=== PATIENT | female | born 1950 | race African-American/Black ===

== ENCOUNTER 2018-06-12 10:46 | Emergency (ER) | payer MEDICARE, OTHER ==
[~2018-06-12] VITALS: Ht 165.1 cm; Wt 67.0 kg
[~2018-06-12 10:46] MED LIST: ASPI-785; LISI-186; METF-414
[2018-06-12] MEDS ORDERED: MORPHINE SULFATE 4 MG/ML CPJ (NOT FOR IM USE) IV STA (11:08)
[2018-06-12] MEDS ORDERED: ONDANSETRON HCL 4MG/2ML INJ IV STA (11:08)
[2018-06-12] MEDS ORDERED: HYDROCODONE/ACETAMINOPHEN 10/325MG TABLET PO ONE (13:30)
[2018-06-12] MEDS ORDERED: MORPHINE SULFATE 10 MG/ML CPJ IM ONE (13:45)
[2018-06-12 14:01] VITALS: BP 199/99
== END 2018-06-12 14:00 | disposition home or self-care (01) ==
LOC: ER 10:57
DX: S42.251A Displaced fracture of greater tuberosity of right humerus, initial encounter for closed fracture (principal); I10 Essential (primary) hypertension; Z93.3 Colostomy status; Z79.899 Other long term (current) drug therapy; W01.0XXA Fall on same level from slipping, tripping and stumbling without subsequent striking against object, initial encounter; Y93.89 Activity, other specified; Y92.89 Other specified places as the place of occurrence of the external cause; Y99.8 Other external cause status
CPT/HCPCS: 73030; 96372; 96374; 96375; 99283; J2270; J2405; A4565

== ENCOUNTER 2018-06-24 16:50 | Emergency (ER) | payer MEDICARE, OTHER ==
[~2018-06-24] VITALS: Ht 162.6 cm; Wt 75.0 kg
[2018-06-24] MEDS ORDERED: HYDROCODONE/ACETAMINOPHEN 5/325MG TABLET PO ONE (18:45)
[2018-06-24 19:04] VITALS: BP 119/83
== END 2018-06-24 19:40 | disposition home or self-care (01) ==
LOC: ER 17:15
DX: G89.29 Other chronic pain (principal); M25.511 Pain in right shoulder; Z85.9 Personal history of malignant neoplasm, unspecified; Z90.49 Acquired absence of other specified parts of digestive tract; Z79.82 Long term (current) use of aspirin
CPT/HCPCS: 99283

== ENCOUNTER 2018-07-11 04:36 | Inpatient (IN) | payer MEDICARE, OTHER ==
[~2018-07-11] VITALS: Ht 162.6 cm; Wt 63.0 kg
[2018-07-11] MEDS ORDERED: FENTANYL CITRATE/PF 50MCG/ML 2ML VIAL IV ONE (06:45)
[2018-07-11 07:23] LABS: HEMATOCRIT. 27.3 % (36.0-48.0); MEAN CORPUSCULAR HEMOGLOBIN 31.5 pg (28.0-32.0); MEAN CORPUSCULAR VOLUME 95.9 fL (81.0-99.0); MEAN PLATELET VOLUME 10.5 fl (7.4-10.4); PLATELET 90 x1000/uL (130-400); RED BLOOD CELL COUNT 2.85 mill/uL (4.2-5.4); RED CELL DISTRIBUTION WIDTH 14.9 % (11.6-14.6)
[2018-07-11 07:28] LABS: CHLORIDE 113 mEq/L (98-107); INR 1.1; PROTHROMBIN TIME 10.8 sec (9.1-11.1)
[2018-07-11 08:04] LABS: PLATELET ESTIMATE SLIGHTLY DECREASED
[2018-07-11] MEDS ORDERED: FENTANYL CITRATE/PF 50MCG/ML 2ML VIAL IM ONE (08:45)
[2018-07-11] MEDS ORDERED: LEVOFLOXACIN 750MG PREMIX 150 ML IV NR (10:15)
[2018-07-11 10:46] LABS: CLARITY URINE CLEAR (CLEAR); COLOR URINE YELLOW (YELLOW); KETONES URINE NEGATIVE (NEGATIVE); LEUKOCYTE ESTERASE URINE NEGATIVE (NEGATIVE); NITRITE URINE NEGATIVE (NEGATIVE); OCCULT BLOOD URINE NEGATIVE (NEGATIVE); PROTEIN URINE NEGATIVE (NEGATIVE); SPECIFIC GRAVITY URINE 1.016 (1.005-1.030); UROBILINOGEN URINE 0.2 E.U./dL (0.2-1.0)
[2018-07-11] MEDS ORDERED: SODIUM BICARBONATE 4% (2.4MEQ) 5ML VIAL IV ONE (10:52)
[2018-07-11] MEDS ORDERED: LIDOCAINE HCL 1% 20ML VIAL (Pyxis) INJ ONE (10:52)
[2018-07-11] MEDS ORDERED: LEVOFLOXACIN 250MG TABLET PO ONE (11:15)
[2018-07-11] MEDS ORDERED: HYDRALAZINE 20MG/ML VIAL IV ONE (13:15)
[2018-07-11 14:47] VITALS: BP 177/87
[2018-07-11 14:57] VITALS: BP 177/98
[2018-07-11] MEDS ORDERED: ACETAMINOPHEN 325MG TABLET PO PRN (15:00)
[2018-07-11] MEDS ORDERED: CLONIDINE 0.1MG TABLET PO PRN (15:00)
[2018-07-11] MEDS ORDERED: DOCUSATE SODIUM 100MG CAPSULE PO PRN (15:00)
[2018-07-11] MEDS ORDERED: ONDANSETRON HCL 4MG/2ML INJ IV PRN (15:00)
[2018-07-11] MEDS ORDERED: ENOXAPARIN 40MG/0.4ML SYR SUBCUT SCH (15:00)
[2018-07-11] MEDS ORDERED: METOPROLOL TARTRATE 5MG/5ML VIAL IV NR (15:15)
[2018-07-11 16:00] VITALS: BP 179/85
[2018-07-11 17:10] LABS: TOTAL IRON BINDING CAPACITY 223 ug/dL (250-450)
[2018-07-11 18:00] VITALS: BP 145/89
[2018-07-11] MEDS: AMLODIPINE 5MG TABLET PO SCH ×2 (18:53→21:55)
[2018-07-11 19:49] VITALS: BP 147/75
[2018-07-11] MEDS: HYDROCODONE/ACETAMINOPHEN 5/325MG TABLET PO PRN ×2 (19:50→23:51)
[2018-07-11] MEDS ORDERED: DEXTROSE 50% WATER 50ML SYRINGE IV PRN ×2 (21:15)
[2018-07-11] MEDS: LISINOPRIL 10MG TABLET PO SCH (21:55)
[2018-07-11 23:47] VITALS: BP 158/80
[2018-07-12 04:00] VITALS: BP 131/69
[2018-07-12] MEDS: HYDROCODONE/ACETAMINOPHEN 5/325MG TABLET PO PRN ×4 (04:11→19:57)
[2018-07-12 06:56] LABS: BASOPHILS % 0.3 % (0.0-2.0); EOSINOPHILS % 0.3 % (0.0-5.0); HEMATOCRIT. 24.2 % (36.0-48.0); LYMPHOCYTES % 13.1 % (20.0-50.0); MEAN CORPUSCULAR VOLUME 93.2 fL (81.0-99.0); MEAN PLATELET VOLUME 10.5 fl (7.4-10.4); MONOCYTES % 12.2 % (2.0-8.0); NEUTROPHILS % 74.1 % (40.0-76.0); PLATELET 83 x1000/uL (130-400); RED BLOOD CELL COUNT 2.59 mill/uL (4.2-5.4); RED CELL DISTRIBUTION WIDTH 14.6 % (11.6-14.6)
[2018-07-12] MEDS ORDERED: BLOOD SUGAR DIAGNOSTIC STRIP TEST SCH (07:40)
[2018-07-12 07:52] LABS: CHLORIDE 116 mEq/L (98-107)
[2018-07-12 07:58] LABS: PHOSPHORUS 2.5 mg/dL (2.5-4.9)
[2018-07-12 07:59] LABS: LDL CHOLESTEROL 25 mg/dL (5-100)
[2018-07-12 08:00] LABS: HDL CHOLESTEROL 72 mg/dL (40-59)
[2018-07-12 08:03] VITALS: BP 117/73
[2018-07-12] MEDS ORDERED: INSULIN LISPRO 100 UNITS/ML SUBCUT SCH (08:10)
[2018-07-12] MEDS: AMLODIPINE 5MG TABLET PO SCH ×2 (08:27→20:40)
[2018-07-12] MEDS: LISINOPRIL 10MG TABLET PO SCH ×2 (08:27→20:40)
[2018-07-12] MEDS: LEVOFLOXACIN 500MG PREMIX 100 ML IV SCH (10:02)
[2018-07-12 12:00] VITALS: BP 140/66
[2018-07-12] MEDS ORDERED: POTASSIUM CHLORIDE 20MEQ TABLET SR PO SCH (12:00)
[2018-07-12 16:00] VITALS: BP 133/74
[2018-07-12 19:53] VITALS: BP 109/69
[2018-07-13 00:02] VITALS: BP 156/69
[2018-07-13] MEDS: HYDROCODONE/ACETAMINOPHEN 5/325MG TABLET PO PRN ×3 (01:06→11:55)
[2018-07-13 04:00] VITALS: BP 138/71
[2018-07-13 08:00] VITALS: BP 132/78
[2018-07-13] MEDS: LEVOFLOXACIN 500MG PREMIX 100 ML IV SCH (09:26)
[2018-07-13] MEDS: LISINOPRIL 10MG TABLET PO SCH (09:27)
[2018-07-13] MEDS: AMLODIPINE 5MG TABLET PO SCH (09:32)
[2018-07-13] MEDS ORDERED: POTASSIUM CHLORIDE 20MEQ TABLET SR PO NR ×2 (10:30→12:00)
[2018-07-13 11:24] LABS: BASOPHILS % 0.4 % (0.0-2.0); EOSINOPHILS % 1.5 % (0.0-5.0); HEMATOCRIT. 25.7 % (36.0-48.0); HEMOGLOBIN. 8.4 g/dL (12.0-16.0); LYMPHOCYTES % 15.2 % (20.0-50.0); MEAN CORPUSCULAR HEMOGLOBIN 30.8 pg (28.0-32.0); MEAN CORPUSCULAR VOLUME 94.2 fL (81.0-99.0); MEAN PLATELET VOLUME 9.8 fl (7.4-10.4); MONOCYTES % 9.1 % (2.0-8.0); NEUTROPHILS % 73.8 % (40.0-76.0); PLATELET 102 x1000/uL (130-400); RED BLOOD CELL COUNT 2.73 mill/uL (4.2-5.4); RED CELL DISTRIBUTION WIDTH 14.5 % (11.6-14.6)
[2018-07-13 11:50] LABS: CHLORIDE 112 mEq/L (98-107)
[2018-07-13 12:00] VITALS: BP 149/78
[2018-07-13 15:12] VITALS: BP 149/78
== END 2018-07-13 16:10 | disposition home or self-care (01) | DRG 392 ==
LOC: ER 04:36 → ENRESERV 11:47 → 7WST 12:16 → EDBEDREQ 12:20 → EDBEDREQTM 12:21
PROVIDERS: ADMIT Family Medicine Adult Medicine; ATTEND Family Medicine Adult Medicine
PROC: 05H533Z Insertion of Infusion Device into Right Subclavian Vein, Percutaneous Approach (ICD-10-PCS; principal; 2018-07-11)
PROC: B546ZZA Ultrasonography of Right Subclavian Vein, Guidance (ICD-10-PCS; 2018-07-11)
DX: R10.9 Unspecified abdominal pain (principal); R91.8 Other nonspecific abnormal finding of lung field; R07.89 Other chest pain; G30.9 Alzheimer's disease, unspecified; F02.80 Dementia in other diseases classified elsewhere, unspecified severity, without behavioral disturbance, psychotic disturbance, mood disturbance, and anxiety; D50.9 Iron deficiency anemia, unspecified; M25.511 Pain in right shoulder; D69.6 Thrombocytopenia, unspecified; E87.6 Hypokalemia; E11.9 Type 2 diabetes mellitus without complications; G20 Parkinson's disease; I10 Essential (primary) hypertension; Z82.49 Family history of ischemic heart disease and other diseases of the circulatory system; Z93.3 Colostomy status; Z79.82 Long term (current) use of aspirin; Z85.038 Personal history of other malignant neoplasm of large intestine; Z85.07 Personal history of malignant neoplasm of pancreas; Z79.84 Long term (current) use of oral hypoglycemic drugs; Z85.05 Personal history of malignant neoplasm of liver
CPT/HCPCS: 36415; 36569; 71045; 74176; 76937; 80048; 80061; 82962; 83036; 83540; 83550; 83605; 83735; 84100; 84484; 93005; 93306; 96372; 96374; 99285; A4565; C1725; J0360; J1956; J3010; J3490; J7050